=== PATIENT | male | born 1945 | race Caucasian/White ===

== ENCOUNTER → 2018-09-01 | Outpatient (REF) ==
--- NOTE | 2018-09-01 16:00 | REP ---
RIGHT SHOULDER, COMPLETE: 09/01/2018. Clinical history: Right shoulder pain. Findings: Three views were provided. Narrowing of the AC joint with prominent spurs inferiorly from the clavicle and acromion. No visible fracture of those bones. The ribs and humeral head are without fracture. There is some minor degenerative changes inferior aspect of glenohumeral joint. No subluxation or dislocation of the humeral head and no abnormal soft tissue calcifications. Impression: 1. 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 This could certainly contribute to impingement on the rotator cuff. 2. No fracture, avulsion, subluxation, dislocation or abnormal soft tissue calcifications. Electronically Signed by Ayo Holder MD 09/01/2018 05:05 P
== END ==
LOC: M RAD 13:42
PROVIDERS: ATTEND Family Medicine
DX: M19.011 Primary osteoarthritis, right shoulder (principal); M25.711 Osteophyte, right shoulder